=== PATIENT | female | born 1955 | race Two or more races ===

== ENCOUNTER 2019-12-19 03:15 | Emergency (ER) | payer SELFPAY ==
[~2019-12-19] VITALS: Ht 165.1 cm; Wt 67.0 kg
[2019-12-19 03:20] VITALS: BP 154/96
== END 2019-12-19 06:36 | disposition home or self-care (01) ==
LOC: ED 05:52
DX: S52.592A Other fractures of lower end of left radius, initial encounter for closed fracture (principal); S22.049A Unspecified fracture of fourth thoracic vertebra, initial encounter for closed fracture; S22.059A Unspecified fracture of T5-T6 vertebra, initial encounter for closed fracture; G89.11 Acute pain due to trauma; M25.532 Pain in left wrist; W01.0XXA Fall on same level from slipping, tripping and stumbling without subsequent striking against object, initial encounter; Y93.89 Activity, other specified; Y92.89 Other specified places as the place of occurrence of the external cause; Y99.8 Other external cause status
CPT/HCPCS: 29125; 72072; 99284